=== PATIENT | male | born 1980 | race Caucasian/White ===

== ENCOUNTER 2017-06-26 18:25 | Emergency (ER) | payer SELFPAY ==
--- NOTE | 2017-06-26 18:35 | UC ---
Lower Extremity/Ankle HPI - HPI Summary HPI Summary: 37 YEAR OLD MALE PRESENTS WITH SEVERE BILATERAL FOOT SWELLING AND SEVERE RIGHT ELBOW SWELLING/PAIN. I WILL SEND HIM TO THE ER TO RULE OUT RIGHT SEPTIC ELBOW AND LOWER EXTREMITY CELLULITIS. - History of Current Complaint Stated Complaint: BILATERAL SWELLING FEET Time Seen by Provider: 06/26/17 18:35 Hx Obtained From: Patient Onset/Duration: Sudden Onset Severity Initially: Moderate Severity Currently: Moderate - Allergies/Home Medications Allergies/Adverse Reactions: Allergies Allergy/AdvReac Type Severity Reaction Status Date / Time Erythromycin Allergy Unknown Unknown Verified 06/26/17 19:00 Reaction Details Penicillins Allergy Unknown Unknown Verified 06/26/17 19:00 Reaction Details PMH/Surg Hx/FS Hx/Imm Hx Previously Healthy: Yes - Surgical History Surgical History: None - Social History Substance Use Type: None Review of Systems Constitutional: Negative Skin: Negative Eyes: Negative ENT: Negative Respiratory: Negative Cardiovascular: Negative Gastrointestinal: Negative Genitourinary: Negative Motor: Negative Neurovascular: Negative Musculoskeletal: Edema, Other: - BILATERAL FOOT SWELLING/ERYTHEMA LEFT ELBOW SWELLING/ERYTHEMA Neurological: Negative Psychological: Negative All Other Systems Reviewed And Are Negative: Yes Physical Exam Triage Information Reviewed: Yes Vital Signs Reviewed: Yes Eye Exam: Normal ENT Exam: Normal Dental Exam: Normal Neck exam: Normal Neck: Positive: 1 Respiratory Exam: Normal Cardiovascular Exam: Normal Abdominal Exam: Normal Musculoskeletal: Positive: Other: - RIGHT ELBOW SWELLING/ERYTHEMA BILATERAL LOWER EXTREMITY SWELLING Neurological Exam: Normal Psychological Exam: Normal Skin: Positive: Other - RIGHT ELBOW SWELLING/ERYTHEMA Lower Extremity Course/Dx - Differential Dx/Diagnosis Provider Diagnoses: RIGHT ELBOW SWELLING/ERYTHEMA. BILATERAL FOOT SWELLING Discharge - Discharge Plan Condition: Stable Disposition: OTHER Discharge Disposition Comment: PATIENT SUGGESTED TO GO TO THE ER. Patient Education Materials: MRSA (Methicillin-Resistant Staphylococcus Aureus ) (ED), Elbow Bursitis (ED), Swollen Joint (ED) Referrals: No Primary Care Phys,NOPCP [Primary Care Provider] - Additional Instructions: PATIENT SUGGESTED TO GO TO THE ER FOR RIGHT ELBOW AND BILATERAL FEET INFECTION.
[2017-06-26 19:00] VITALS: BP 134/75
== END 2017-06-26 19:25 ==
LOC: UCCORT 18:25
DX: M25.421 Effusion, right elbow (principal); Z88.0 Allergy status to penicillin
CPT/HCPCS: 99202; G0463

== ENCOUNTER 2017-06-26 20:15 | Emergency (ER) | payer SELFPAY ==
[2017-06-26] MEDS ORDERED: Sulfamethox/Trimethoprim DS 800/160* TAB PO ONE (21:28)
[2017-06-26] MEDS ORDERED: Tetan/Diph/Pertus SYR(Tdap)* 0.5 ML SYR(BOOSTRIX) use SYR IM ONE (21:28)
[2017-06-26] MEDS ORDERED: Ibuprofen TAB* 800 MG PO ONE (21:28)
[2017-06-26] MEDS ORDERED: oxyCODONE/Acetamin 5/325 MG* TAB PO ONE (22:31)
[2017-06-26] MEDS: oxyCODONE/Acetamin 5/325 MG* TAB PO ONE ×2 (22:40→22:41)
[2017-06-26 23:04] VITALS: BP 132/70
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
--- NOTE | 2017-06-27 07:36 | RAD ---
HISTORY: Bilateral feet pain and swelling COMPARISONS: None VIEWS: 5, frontal views of both feet with lateral and oblique views of the left foot and of the right foot FINDINGS: Right: BONE DENSITY: Normal. BONES: There is no displaced fracture. JOINTS: There is moderate osteoarthritis of the first MTP joint. ALIGNMENT: There is no dislocation. The alignment is anatomic. SOFT TISSUES: Unremarkable. Left: BONE DENSITY: Normal. BONES: There is no displaced fracture. JOINTS: There is no arthropathy. ALIGNMENT: There is no dislocation. The alignment is anatomic. SOFT TISSUES: Unremarkable. OTHER FINDINGS: None. IMPRESSION: RIGHT FIRST MTP OSTEOARTHRITIS. NO ACUTE OSSEOUS INJURY BILATERALLY. IF SYMPTOMS PERSIST, RECOMMEND REPEAT IMAGING.
--- NOTE | 2017-06-27 07:37 | RAD ---
HISTORY: Right elbow pain and swelling COMPARISONS: None VIEWS: 5, Frontal, lateral, and oblique views of the right elbow FINDINGS: BONE DENSITY: Normal. BONES: There is no displaced fracture. JOINTS: There is no arthropathy. There is no posterior supracondylar fat pad to suggest a joint effusion. ALIGNMENT: There is no dislocation. SOFT TISSUES: Unremarkable. OTHER FINDINGS: None. IMPRESSION: NO ACUTE OSSEOUS INJURY. IF SYMPTOMS PERSIST, RECOMMEND REPEAT IMAGING.
== END 2017-06-26 23:02 | disposition home or self-care (01) ==
LOC: ED 20:15
DX: L03.116 Cellulitis of left lower limb (principal); L03.115 Cellulitis of right lower limb; L03.113 Cellulitis of right upper limb
CPT/HCPCS: 90471; 90715; 99283; A9270-GY